=== PATIENT | female | born 1965 | race Caucasian/White ===

== ENCOUNTER 2018-07-19 11:44 | Emergency (ER) | payer MEDICARE, SELFPAY ==
[~2018-07-19] VITALS: Ht 167.6 cm; Wt 68.6 kg
[2018-07-19 11:53] VITALS: BP 180/85
[2018-07-19] MEDS ORDERED: LIDOCAINE 1%-EPI 1:100K, 30ML ONE (12:21)
[2018-07-19] MEDS ORDERED: LIDOCAINE 1%-EPI 1:100K, 20ML SQ ONE (12:30)
== END 2018-07-19 12:51 | disposition home or self-care (01) ==
LOC: ED 12:45
DX: L72.3 Sebaceous cyst (principal)
CPT/HCPCS: 10060; 99283; J3490

== ENCOUNTER 2018-07-21 10:28 | Emergency (ER) | payer MEDICARE ==
[~2018-07-21] VITALS: Ht 167.6 cm; Wt 68.4 kg
[2018-07-21 10:38] VITALS: BP 132/76
[2018-07-21] MEDS ORDERED: SULF-169 PO (11:10)
== END 2018-07-21 11:19 | disposition home or self-care (01) ==
LOC: ED 11:12
DX: L02.213 Cutaneous abscess of chest wall (principal)
CPT/HCPCS: 99282; 99283

== ENCOUNTER 2018-07-23 10:44 | Emergency (ER) | payer MEDICARE ==
[~2018-07-23] VITALS: Ht 167.6 cm; Wt 69.5 kg
[~2018-07-23 10:44] MED LIST: SULF-169 PO
[2018-07-23 10:54] VITALS: BP 130/75
== END 2018-07-23 11:47 | disposition home or self-care (01) ==
LOC: ED 11:40
DX: Z48.01 Encounter for change or removal of surgical wound dressing (principal); Z88.5 Allergy status to narcotic agent
CPT/HCPCS: 99282